=== PATIENT | male | born 1955 | race Caucasian/White ===

== ENCOUNTER → 2016-09-30 | Emergency (ER) | payer OTHER ==
[~2016-09-30] VITALS: Ht 177.8 cm; Wt 106.9 kg
[2016-09-30 09:22] VITALS: BP 110/69
[2016-09-30 10:02] LABS: HEMATOCRIT 44.9 % (38.0-50.0); MCH 28.7 PG (29.0-34.0); MCHC 32.7 G/DL (30.0-36.0); MCV 87.7 FL (86-99); MEAN PLAT.VOLUME 8.5 uM^3 (9.0-12.4); PLATELET COUNT 258 K/uL (156-360); RBC DIS.WIDTH-CV 14.6 % (11.8-14.6); RBC DIS.WIDTH-SD 46.9 % (39-53); RED BLOOD COUNT 5.12 M/uL (4.00-5.50); WHITE BLOOD COUNT 9.9 K/uL (4.1-10.2)
[2016-09-30 10:11] LABS: CHLORIDE 105 mEq/L (99-109); POTASSIUM 4.5 mEq/L (3.7-5.4); SODIUM 139 mEq/L (136-147)
[2016-09-30 10:14] LABS: GLUCOSE 132 mg/dL (70-99)
[2016-09-30 10:15] LABS: ANION GAP 11 MEQ/L (2-14)
[2016-09-30 10:16] LABS: TOTAL BILIRUBIN 0.4 mg/dL (0.0-1.0)
[2016-09-30 10:17] LABS: ALKALINE PHOSPHATASE 57 IU/L (3-129); GFR ESTIMATE (CALCULATED) > 59 mL/min/
[2016-09-30 10:18] LABS: UREA NITROGEN (BUN) 16 mg/dL (9-23)
[2016-09-30 10:21] LABS: LIPASE 24 U/L (1.0-51.0)
== END | disposition left against medical advice (07) ==
LOC: EME 09:16
DX: R07.9 Chest pain, unspecified (principal); R10.10 Upper abdominal pain, unspecified; Z53.21 Procedure and treatment not carried out due to patient leaving prior to being seen by health care provider
CPT/HCPCS: 80053; 81003; 83690; 85027; 93005